=== PATIENT | female | born 1980 | race Caucasian/White ===

== ENCOUNTER 2022-07-11 19:51 | Emergency (ER) | payer MEDICAID ==
[~2022-07-11] VITALS: Ht 157.5 cm; Wt 72.0 kg
[2022-07-11] MEDS ORDERED: KETOROLAC 30MG/ML VIAL IV STA (23:20)
[2022-07-11] MEDS ORDERED: ONDANSETRON HCL 4MG/2ML INJ IV ONE (23:30)
[2022-07-11] MEDS ORDERED: FAMOTIDINE 20MG/2ML VIAL IV ONE (23:30)
[2022-07-11] MEDS ORDERED: SODIUM CHLORIDE 0.9% 1,000 ML IV ONE (23:30)
[2022-07-11 23:47] LABS: CLARITY URINE TURBID (CLEAR); COLOR URINE YELLOW (YELLOW); KETONES URINE TRACE (NEGATIVE); LEUKOCYTE ESTERASE URINE TRACE (NEGATIVE); NITRITE URINE POSITIVE (NEGATIVE); OCCULT BLOOD URINE NEGATIVE (NEGATIVE); PH URINE 7.5 (4.5-8.0); PROTEIN URINE NEGATIVE (NEGATIVE); SPECIFIC GRAVITY URINE 1.021 (1.005-1.030); UROBILINOGEN URINE 0.2 E.U./dL (0.2-1.0)
[2022-07-12 00:40] LABS: BASOPHILS % 0.7 % (0.0-2.0); EOSINOPHILS % 1.3 % (0.0-5.0); HEMATOCRIT. 34.5 % (36.0-48.0); HEMOGLOBIN. 11.2 g/dL (12.0-16.0); MEAN CORPUSCULAR HEMOGLOBIN 26.1 pg (28.0-32.0); MEAN CORPUSCULAR VOLUME 80.1 fL (81.0-99.0); MEAN PLATELET VOLUME 8.3 fl (7.4-10.4); MONOCYTES % 9.7 % (2.0-8.0); NEUTROPHILS % 57.3 % (40.0-76.0); PLATELET 403 x1000/uL (130-400); RED CELL DISTRIBUTION WIDTH 14.1 % (11.6-14.6)
[2022-07-12 00:48] LABS: CHLORIDE 107 mEq/L (98-107)
[2022-07-12] MEDS ORDERED: FAMO20TA8 PO (01:53)
[2022-07-12] MEDS ORDERED: BISM-77 PO (01:53)
[2022-07-12] MEDS ORDERED: SULF1TAB48 PO (01:53)
[2022-07-12] MEDS ORDERED: ONDA4TAB50 PO (01:53)
[2022-07-12 02:20] VITALS: BP 142/80
== END 2022-07-12 02:12 | disposition home or self-care (01) ==
LOC: ER 19:51
DX: K52.9 Noninfective gastroenteritis and colitis, unspecified (principal); N39.0 Urinary tract infection, site not specified
CPT/HCPCS: 36415; 80053; 81003; 83690; 85025; 96361; 96374; 96375; 99284; J1885; J2405; J3490; J7030

== ENCOUNTER 2023-08-23 15:47 | Emergency (ER) | payer MEDICAID ==
[~2023-08-23] VITALS: Ht 154.9 cm; Wt 73.0 kg
[~2023-08-23 15:47] MED LIST: BISM-77 PO; FAMO20TA8 PO; ONDA4TAB50 PO; SULF1TAB48 PO
[2023-08-23 16:58] VITALS: TEMP 98.4; O2SAT 100
[2023-08-23] MEDS ORDERED: KETOROLAC 60MG/2ML VIAL IM ONE (17:45)
[2023-08-23] MEDS ORDERED: DEXAMETHASONE 4MG/ML 1ML VIAL IM SCH (17:45)
[2023-08-23] MEDS ORDERED: CYCL10TA21 MT (18:12)
[2023-08-23] MEDS ORDERED: KETOROLAC 60MG/2ML VIAL IM NR (19:15)
[2023-08-23] MEDS ORDERED: DEXAMETHASONE 4MG/ML 1ML VIAL IM NR (19:15)
[2023-08-23 19:16] VITALS: BP 135/86; PULSE 67; RESP 16
== END 2023-08-23 19:17 | disposition home or self-care (01) ==
LOC: ER 15:47
DX: M54.50 Low back pain, unspecified (principal)
CPT/HCPCS: 96372; 99283; J1100; J1885; Z7610